=== PATIENT | female | born 1965 ===

== ENCOUNTER 2024-09-23 06:20 | Day surgery (SDC) | payer BC, SELFPAY | END 2024-09-23 11:19 | disposition home or self-care (01) | LOC: GI 06:20 | PROVIDERS: ATTENDING PHYSICIAN Internal Medicine Gastroenterology | DX: R19.4 Change in bowel habit (principal); R63.4 Abnormal weight loss; R19.7 Diarrhea, unspecified; K64.8 Other hemorrhoids; K57.30 Diverticulosis of large intestine without perforation or abscess without bleeding; R10.13 Epigastric pain; K44.9 Diaphragmatic hernia without obstruction or gangrene; K31.89 Other diseases of stomach and duodenum; D12.2 Benign neoplasm of ascending colon; K62.1 Rectal polyp; K63.5 Polyp of colon; K31.A0 Gastric intestinal metaplasia, unspecified | CPT/HCPCS: 45385; 45380; 43239; 88305; 88342 ==